=== PATIENT | female | born 1955 | race Caucasian/White ===

== ENCOUNTER 2019-03-24 12:31 | Inpatient (IN) | payer MEDICAID ==
[~2019-03-24] VITALS: Ht 170.2 cm; Wt 99.3 kg
[2019-03-24] MEDS ORDERED: [UNRECOGNIZED DRUG - REMARK] PO (12:48)
[2019-03-24] MEDS ORDERED: IV NORMAL SALINE 1000 ML BAG IV ONE (13:00)
[2019-03-24 13:02] LABS: BASOPHILS # (AUTO) 0.1 K/uL (0.0-8.0); BASOPHILS % (AUTO) 1.3 % (0.0-2.0); EOSINOPHILS # (AUTO) 0.5 K/uL (0.0-0.7); EOSINOPHILS % (AUTO) 6.6 % (0.0-7.0); HEMATOCRIT 38.5 % (31.2-41.9); HEMOGLOBIN 12.8 g/dL (10.9-14.3); LYMPHOCYTES # (AUTO) 1.7 K/uL (20.0-40.0); LYMPHOCYTES % (AUTO) 22.1 % (20.5-51.5); MEAN CORPUSCULAR HEMOGLOBIN 32.1 uug (24.7-32.8); MEAN CORPUSCULAR HGB CONC 33 g/dL (32.3-35.6); MONOCYTES # (AUTO) 0.7 K/uL (2.0-10.0); MONOCYTES % (AUTO) 9.6 % (0.0-11.0); NEUTROPHILS # (AUTO) 4.7 K/uL (1.8-8.9); NEUTROPHILS % (AUTO) 60.4 % (38.5-71.5); PLATELET COUNT (AUTO) 258 K/uL (179-408); RED BLOOD CELL COUNT(AUTO) 3.97 MIL/uL (3.63-4.92); WHITE BLOOD COUNT (AUTO) 7.8 K/uL (3.8-11.8)
[2019-03-24 13:08] LABS: CREATININE 0.8 mg/dL (0.6-1.3); POTASSIUM 3.3 mmol/L (3.5-5.1)
[2019-03-24 13:11] LABS: ACETAMINOPHEN < 2.0 ug/mL (10-30); ETHANOL < 3 MG/DL (0-0)
[2019-03-24 13:20] LABS: BILIRUBIN,DIRECT 0.2 mg/dL (0.0-0.2); BILIRUBIN,TOTAL 0.6 mg/dL (0.2-1.0); TOTAL PROTEIN, SERUM 6.6 g/dL (6.4-8.2)
[2019-03-24 14:17] LABS: *BILIRUBIN,URIN NEGATIVE (NEGATIVE); *BLOOD, URINE NEGATIVE (NEGATIVE); *COLOR,URINE YELLOW (YELLOW); *KETONES,URINE TRACE (NEGATIVE); LEUKOCYTE ESTERASE ,URINE 2+ (NEGATIVE); NITRITE, URINE NEGATIVE (NEGATIVE); PH,URINE 5.5 (5.0-8.0); UGLUCOSE NEGATIVE (NEGATIVE)
[2019-03-24 14:21] LABS: *CLARITY,URINE CLOUDY (CLEAR)
[2019-03-24 14:23] LABS: BACTERIA,URINE MODERATE /HPF (NONE SEEN); SQUAMOUS EPITHELIAL CELL,UR FEW /HPF (NONE SEEN); WBC,URINE 80-100 /HPF (0-3)
[2019-03-24 14:24] LABS: MUCUS,URINE MANY /LPF (0-FEW); URINE AMORPHOUS URATE FEW /HPF
[2019-03-24] MEDS ORDERED: CEFTRIAXONE 1 G in IV DEXTROSE 5% 50 ML IV ONE (14:45)
[2019-03-24] MEDS ORDERED: CEFTRIAXONE 1 G VIAL ONE (15:02)
[2019-03-24] MEDS ORDERED: MAGNESIUM HYDROXIDE 30 ML LIQUID UDC PO PRN (15:15)
[2019-03-24] MEDS ORDERED: Z GUARD REMEDY PASTE 57 GM TUBE TOP PRN (15:15)
[2019-03-24] MEDS ORDERED: ONDANSETRON 4 MG/2 ML VIAL IV PRN (15:15)
[2019-03-24] MEDS ORDERED: HYDROCODONE/APAP 5-325MG TABLET PO PRN (15:15)
[2019-03-24 16:00] LABS: *AMPHETAMINE, URINE NEGATIVE (NEGATIVE); *BARBITURATE, URINE NEGATIVE (NEGATIVE); *CANNABINOID, URINE NEGATIVE (NEGATIVE); *COCCAINE, URINE NEGATIVE (NEGATIVE); *OPIATE, URINE NEGATIVE (NEGATIVE); *PHENCYCLIDINE SCREEN,URINE NEGATIVE (NEGATIVE)
[2019-03-24 16:12] VITALS: BP 157/79
[2019-03-24] MEDS: IV NS 1000 ML 1,000 ML IV PRN (17:10)
[2019-03-24 20:04] VITALS: BP 113/74
[2019-03-25 00:08] VITALS: BP 148/74
[2019-03-25 04:00] VITALS: BP 148/72
[2019-03-25] MEDS: IV NS 1000 ML 1,000 ML IV PRN ×2 (06:24→20:28)
[2019-03-25 06:52] LABS: CREATININE 0.6 mg/dL (0.6-1.3); MAGNESIUM 1.3 mg/dL (1.8-2.4); PHOSPHOROUS 4.6 mg/dL (2.5-4.9); POTASSIUM 3.2 mmol/L (3.5-5.1)
[2019-03-25 06:59] LABS: BASOPHILS # (AUTO) 0.1 K/uL (0.0-8.0); EOSINOPHILS # (AUTO) 0.5 K/uL (0.0-0.7); EOSINOPHILS % (AUTO) 9.7 % (0.0-7.0); LYMPHOCYTES # (AUTO) 1.3 K/uL (20.0-40.0); LYMPHOCYTES % (AUTO) 23.6 % (20.5-51.5); MEAN CORPUSCULAR HEMOGLOBIN 32.2 uug (24.7-32.8); MEAN CORPUSCULAR HGB CONC 33 g/dL (32.3-35.6); MEAN CORPUSCULAR VOLUME 97.1 fL (75.5-95.3); MONOCYTES # (AUTO) 0.5 K/uL (2.0-10.0); MONOCYTES % (AUTO) 8.7 % (0.0-11.0); RED BLOOD CELL COUNT(AUTO) 3.48 MIL/uL (3.63-4.92)
[2019-03-25 07:02] LABS: THYROID STIMULATING HORMONE 4.39 mIU/mL (0.358-3.740); WHITE BLOOD COUNT (AUTO) 5.3 K/uL (3.8-11.8)
[2019-03-25 07:03] LABS: HEMATOCRIT 33.8 % (31.2-41.9); HEMOGLOBIN 11.2 g/dL (10.9-14.3); PLATELET COUNT (AUTO) 177 K/uL (179-408)
[2019-03-25 11:19] VITALS: BP 103/76
[2019-03-25] MEDS ORDERED: POTASSIUM CHLORIDE 20 MEQ TAB.PRT.SR PO ONE (14:30)
[2019-03-25 15:28] VITALS: BP 151/82
[2019-03-25] MEDS: MAGNESIUM OXIDE 400 MG TABLET PO SCH ×2 (15:31→17:30)
[2019-03-25 19:32] VITALS: BP 156/77
[2019-03-25] MEDS ORDERED: CEFTRIAXONE 1 G in IV DEXTROSE 5% 50 ML IV SCH (21:00)
[2019-03-25] MEDS ORDERED: HALOPERIDOL LACTATE 5 MG/1 ML VIAL IM PRN (21:30)
[2019-03-25] MEDS ORDERED: LORAZEPAM 2 MG/1 ML VIAL IV PRN (22:15)
[2019-03-26 04:25] VITALS: BP 141/76
[2019-03-26 05:46] LABS: BASOPHILS # (AUTO) 0.1 K/uL (0.0-8.0); EOSINOPHILS # (AUTO) 0.5 K/uL (0.0-0.7); EOSINOPHILS % (AUTO) 8.6 % (0.0-7.0); HEMATOCRIT 31.8 % (31.2-41.9); HEMOGLOBIN 10.6 g/dL (10.9-14.3); LYMPHOCYTES # (AUTO) 1.5 K/uL (20.0-40.0); LYMPHOCYTES % (AUTO) 24.3 % (20.5-51.5); MEAN CORPUSCULAR HEMOGLOBIN 32.2 uug (24.7-32.8); MEAN CORPUSCULAR HGB CONC 33 g/dL (32.3-35.6); MEAN CORPUSCULAR VOLUME 96.9 fL (75.5-95.3); MONOCYTES # (AUTO) 0.6 K/uL (2.0-10.0); MONOCYTES % (AUTO) 10.5 % (0.0-11.0); NEUTROPHILS # (AUTO) 3.3 K/uL (1.8-8.9); NEUTROPHILS % (AUTO) 55.6 % (38.5-71.5); PLATELET COUNT (AUTO) 172 K/uL (179-408); RED BLOOD CELL COUNT(AUTO) 3.28 MIL/uL (3.63-4.92)
[2019-03-26 05:53] LABS: CREATININE 0.7 mg/dL (0.6-1.3); MAGNESIUM 1.5 mg/dL (1.8-2.4); PHOSPHOROUS 3.8 mg/dL (2.5-4.9); POTASSIUM 3.6 mmol/L (3.5-5.1)
[2019-03-26 06:59] LABS: *AMPHETAMINE, URINE NEGATIVE (NEGATIVE); *BARBITURATE, URINE NEGATIVE (NEGATIVE); *CANNABINOID, URINE NEGATIVE (NEGATIVE); *COCCAINE, URINE NEGATIVE (NEGATIVE); *OPIATE, URINE NEGATIVE (NEGATIVE); *PHENCYCLIDINE SCREEN,URINE NEGATIVE (NEGATIVE)
[2019-03-26] MEDS: IV NS 1000 ML 1,000 ML IV PRN (10:40)
[2019-03-26] MEDS: NYSTATIN POWDER 15 GM BOTTLE TOP SCH ×2 (10:41→20:16)
[2019-03-26 12:04] VITALS: BP 149/79
[2019-03-26] MEDS: MAGNESIUM SULFATE/D5W 100 ML IV SCH ×2 (14:04→15:19)
[2019-03-26] MEDS: CYANOCOBALAMIN 1000 MCG/ML VIAL IM SCH (14:49)
[2019-03-26 16:04] VITALS: BP 152/81
[2019-03-26 19:38] VITALS: BP 147/91
[2019-03-26] MEDS: DONEPEZIL 5 MG TABLET PO SCH (20:16)
[2019-03-26 23:59] VITALS: BP 151/86
[2019-03-27] MEDS: IV NS 1000 ML 1,000 ML IV PRN ×2 (01:05→20:05)
[2019-03-27 05:05] VITALS: BP 151/78
[2019-03-27 06:13] LABS: BASOPHILS # (AUTO) 0.1 K/uL (0.0-8.0); BASOPHILS % (AUTO) 0.8 % (0.0-2.0); EOSINOPHILS # (AUTO) 0.5 K/uL (0.0-0.7); EOSINOPHILS % (AUTO) 7.6 % (0.0-7.0); HEMATOCRIT 31.4 % (31.2-41.9); HEMOGLOBIN 10.3 g/dL (10.9-14.3); LYMPHOCYTES # (AUTO) 1.5 K/uL (20.0-40.0); LYMPHOCYTES % (AUTO) 23.7 % (20.5-51.5); MEAN CORPUSCULAR HGB CONC 33 g/dL (32.3-35.6); MEAN CORPUSCULAR VOLUME 97.1 fL (75.5-95.3); MONOCYTES # (AUTO) 0.7 K/uL (2.0-10.0); MONOCYTES % (AUTO) 10.7 % (0.0-11.0); NEUTROPHILS # (AUTO) 3.6 K/uL (1.8-8.9); NEUTROPHILS % (AUTO) 57.2 % (38.5-71.5); PLATELET COUNT (AUTO) 171 K/uL (179-408); RED BLOOD CELL COUNT(AUTO) 3.23 MIL/uL (3.63-4.92); WHITE BLOOD COUNT (AUTO) 6.3 K/uL (3.8-11.8)
[2019-03-27 06:14] LABS: CREATININE 0.6 mg/dL (0.6-1.3); MAGNESIUM 1.8 mg/dL (1.8-2.4); PHOSPHOROUS 4.2 mg/dL (2.5-4.9); POTASSIUM 3.6 mmol/L (3.5-5.1)
[2019-03-27] MEDS: DONEPEZIL 5 MG TABLET PO SCH ×2 (08:11→20:05)
[2019-03-27] MEDS: HALOPERIDOL 5 MG TABLET PO SCH ×3 (08:11→16:12)
[2019-03-27] MEDS: CYANOCOBALAMIN 1000 MCG/ML VIAL IM SCH (08:11)
[2019-03-27] MEDS: BENZTROPINE MESYLATE 1 MG TABLET PO SCH ×3 (08:11→16:12)
[2019-03-27] MEDS: NYSTATIN POWDER 15 GM BOTTLE TOP SCH ×2 (08:12→20:27)
[2019-03-27 08:18] VITALS: BP 147/78
[2019-03-27 12:00] VITALS: BP 149/76
[2019-03-27 16:00] VITALS: BP 129/77
[2019-03-27 20:00] VITALS: BP 123/67
[2019-03-27] MEDS: ACETAMINOPHEN 325 MG TABLET PO PRN (20:38)
[2019-03-27] MEDS: ZOLPIDEM 5 MG TABLET PO PRN (23:48)
[2019-03-28 00:12] VITALS: BP 96/49
[2019-03-28 04:00] VITALS: BP 154/85
[2019-03-28] MEDS: HALOPERIDOL 5 MG TABLET PO SCH ×3 (08:00→16:05)
[2019-03-28] MEDS: BENZTROPINE MESYLATE 1 MG TABLET PO SCH ×3 (08:00→16:05)
[2019-03-28] MEDS: NYSTATIN POWDER 15 GM BOTTLE TOP SCH ×2 (08:00→20:29)
[2019-03-28] MEDS: CYANOCOBALAMIN 1000 MCG/ML VIAL IM SCH (08:00)
[2019-03-28] MEDS: DONEPEZIL 5 MG TABLET PO SCH ×2 (08:00→20:22)
[2019-03-28] MEDS: IV NS 1000 ML 1,000 ML IV PRN ×2 (09:07→22:40)
[2019-03-28 11:18] VITALS: BP 123/60
[2019-03-28 15:15] VITALS: BP 124/62
[2019-03-28 20:00] VITALS: BP 123/77
[2019-03-28] MEDS: ACETAMINOPHEN 325 MG TABLET PO PRN (20:22)
[2019-03-29 06:14] VITALS: BP 161/84
[2019-03-29 06:41] VITALS: BP 131/79
[2019-03-29 06:54] LABS: CREATININE 0.6 mg/dL (0.6-1.3); MAGNESIUM 1.5 mg/dL (1.8-2.4); PHOSPHOROUS 4.2 mg/dL (2.5-4.9); POTASSIUM 3.3 mmol/L (3.5-5.1)
[2019-03-29 06:55] LABS: BASOPHILS % (AUTO) 0.8 % (0.0-2.0); EOSINOPHILS # (AUTO) 0.4 K/uL (0.0-0.7); EOSINOPHILS % (AUTO) 6.3 % (0.0-7.0); HEMATOCRIT 32.3 % (31.2-41.9); HEMOGLOBIN 10.7 g/dL (10.9-14.3); LYMPHOCYTES # (AUTO) 1.3 K/uL (20.0-40.0); LYMPHOCYTES % (AUTO) 20.3 % (20.5-51.5); MEAN CORPUSCULAR HEMOGLOBIN 32.1 uug (24.7-32.8); MEAN CORPUSCULAR HGB CONC 33 g/dL (32.3-35.6); MONOCYTES # (AUTO) 0.7 K/uL (2.0-10.0); MONOCYTES % (AUTO) 11.4 % (0.0-11.0); NEUTROPHILS # (AUTO) 3.8 K/uL (1.8-8.9); NEUTROPHILS % (AUTO) 61.2 % (38.5-71.5); PLATELET COUNT (AUTO) 187 K/uL (179-408); RED BLOOD CELL COUNT(AUTO) 3.33 MIL/uL (3.63-4.92); WHITE BLOOD COUNT (AUTO) 6.2 K/uL (3.8-11.8)
[2019-03-29] MEDS: HALOPERIDOL 5 MG TABLET PO SCH ×3 (08:03→16:05)
[2019-03-29] MEDS: CYANOCOBALAMIN 1000 MCG/ML VIAL IM SCH (08:03)
[2019-03-29] MEDS: BENZTROPINE MESYLATE 1 MG TABLET PO SCH ×3 (08:03→16:05)
[2019-03-29] MEDS: DONEPEZIL 5 MG TABLET PO SCH ×2 (08:03→20:57)
[2019-03-29] MEDS: NYSTATIN POWDER 15 GM BOTTLE TOP SCH ×2 (08:04→20:57)
[2019-03-29] MEDS ORDERED: MAGNESIUM OXIDE 400 MG TABLET PO ONE (10:45)
[2019-03-29] MEDS ORDERED: POTASSIUM CHLORIDE 10 MEQ TAB.PRT.SR PO ONE (10:45)
[2019-03-29 11:36] VITALS: BP 143/71
[2019-03-29 15:19] VITALS: BP 132/65
[2019-03-29 20:20] VITALS: BP 170/78
[2019-03-29] MEDS: ZOLPIDEM 5 MG TABLET PO PRN (23:19)
[2019-03-30 06:00] VITALS: BP 140/62
[2019-03-30 06:29] LABS: BASOPHILS # (AUTO) 0.1 K/uL (0.0-8.0); BASOPHILS % (AUTO) 1.1 % (0.0-2.0); EOSINOPHILS # (AUTO) 0.4 K/uL (0.0-0.7); EOSINOPHILS % (AUTO) 6.5 % (0.0-7.0); HEMOGLOBIN 10.8 g/dL (10.9-14.3); LYMPHOCYTES # (AUTO) 1.2 K/uL (20.0-40.0); LYMPHOCYTES % (AUTO) 20.5 % (20.5-51.5); MEAN CORPUSCULAR HEMOGLOBIN 31.8 uug (24.7-32.8); MEAN CORPUSCULAR HGB CONC 33 g/dL (32.3-35.6); MEAN CORPUSCULAR VOLUME 96.8 fL (75.5-95.3); MONOCYTES # (AUTO) 0.6 K/uL (2.0-10.0); MONOCYTES % (AUTO) 10.2 % (0.0-11.0); NEUTROPHILS # (AUTO) 3.5 K/uL (1.8-8.9); NEUTROPHILS % (AUTO) 61.7 % (38.5-71.5); PLATELET COUNT (AUTO) 190 K/uL (179-408); RED BLOOD CELL COUNT(AUTO) 3.41 MIL/uL (3.63-4.92); WHITE BLOOD COUNT (AUTO) 5.7 K/uL (3.8-11.8)
[2019-03-30 06:47] LABS: CREATININE 0.6 mg/dL (0.6-1.3); MAGNESIUM 1.5 mg/dL (1.8-2.4); PHOSPHOROUS 4.5 mg/dL (2.5-4.9); POTASSIUM 3.4 mmol/L (3.5-5.1)
[2019-03-30] MEDS: BENZTROPINE MESYLATE 1 MG TABLET PO SCH ×3 (08:14→16:01)
[2019-03-30] MEDS: HALOPERIDOL 5 MG TABLET PO SCH ×3 (08:14→16:01)
[2019-03-30] MEDS: DONEPEZIL 5 MG TABLET PO SCH (08:15)
[2019-03-30] MEDS: CYANOCOBALAMIN 1000 MCG/ML VIAL IM SCH (08:15)
[2019-03-30] MEDS: NYSTATIN POWDER 15 GM BOTTLE TOP SCH (08:16)
[2019-03-30] MEDS ORDERED: POTASSIUM CHLORIDE 20 MEQ TAB.PRT.SR PO ONE (09:15)
[2019-03-30] MEDS ORDERED: MAGNESIUM OXIDE 400 MG TABLET PO ONE (09:15)
[2019-03-30] MEDS ORDERED: POTASSIUM CHLORIDE 20 MEQ POWDER PACKET PO ONE (09:45)
[2019-03-30 11:34] VITALS: BP 143/69
[2019-03-30 15:00] VITALS: BP 110/68
[2019-03-30] MEDS ORDERED: AMPI500C11 PO (18:41)
[2019-03-30] MEDS ORDERED: DONE5TAB7 PO (18:41)
[2019-03-30] MEDS ORDERED: HALO5TAB12 PO (18:41)
[2019-03-30] MEDS ORDERED: BENZ1TAB7 PO (18:41)
== END 2019-03-30 20:33 | disposition home or self-care (01) | DRG 463 ==
LOC: ER 12:31 → TELE3 15:07 → MEDSURG3 16:01 → TELE3 19:03 → MEDSURG3 03-28 11:12
PROVIDERS: ADMIT Student in an Organized Health Care Education/Training Program; ATTEND Student in an Organized Health Care Education/Training Program
DX: N39.0 Urinary tract infection, site not specified (principal); G93.41 Metabolic encephalopathy; E44.0 Moderate protein-calorie malnutrition; E86.0 Dehydration; Z90.710 Acquired absence of both cervix and uterus; E87.6 Hypokalemia; Z68.34 Body mass index [BMI] 34.0-34.9, adult; F10.27 Alcohol dependence with alcohol-induced persisting dementia; Y90.0 Blood alcohol level of less than 20 mg/100 ml; R26.2 Difficulty in walking, not elsewhere classified; Z85.41 Personal history of malignant neoplasm of cervix uteri; F41.9 Anxiety disorder, unspecified
CPT/HCPCS: 36415; 70030-TC; 70450; 71045; 80307; 83735; 83921; 84100; 84443; 85025; 85730; 87077; 87086; 92526; 92610; 93005; 97110; 97116; 97530; A4663; G0378; G0480; G0480-TC; J0290; J0696; J1630; J2060; J3420; J3475; J3490; J7030; J7060

== ENCOUNTER 2019-05-18 12:09 | Inpatient (IN) | payer MEDICAID ==
[~2019-05-18] VITALS: Ht 172.7 cm; Wt 92.1 kg
[~2019-05-18 12:09] MED LIST: AMPI500C11 PO; BENZ1TAB7 PO; DONE5TAB7 PO; HALO5TAB12 PO
[2019-05-18 13:01] LABS: BASOPHILS % (AUTO) 0.4 % (0.0-2.0); EOSINOPHILS # (AUTO) 0.1 K/uL (0.0-0.7); EOSINOPHILS % (AUTO) 1.1 % (0.0-7.0); HEMATOCRIT 33.9 % (31.2-41.9); HEMOGLOBIN 11.3 g/dL (10.9-14.3); LYMPHOCYTES # (AUTO) 1.3 K/uL (20.0-40.0); LYMPHOCYTES % (AUTO) 12.7 % (20.5-51.5); MEAN CORPUSCULAR HGB CONC 33 g/dL (32.3-35.6); MEAN CORPUSCULAR VOLUME 93.1 fL (75.5-95.3); MONOCYTES # (AUTO) 0.8 K/uL (2.0-10.0); MONOCYTES % (AUTO) 7.8 % (0.0-11.0); NEUTROPHILS # (AUTO) 7.7 K/uL (1.8-8.9); PLATELET COUNT (AUTO) 226 K/uL (179-408); RED BLOOD CELL COUNT(AUTO) 3.64 MIL/uL (3.63-4.92); WHITE BLOOD COUNT (AUTO) 9.9 K/uL (3.8-11.8)
[2019-05-18 13:10] LABS: CREATININE 1.2 mg/dL (0.6-1.3); POTASSIUM 3.7 mmol/L (3.5-5.1)
[2019-05-18 13:16] LABS: BILIRUBIN,DIRECT 0.2 mg/dL (0.0-0.2); BILIRUBIN,TOTAL 0.6 mg/dL (0.2-1.0); TOTAL PROTEIN, SERUM 6.1 g/dL (6.4-8.2)
[2019-05-18 13:23] LABS: THYROID STIMULATING HORMONE 1.53 mIU/mL (0.358-3.740)
[2019-05-18 13:43] LABS: ETHANOL < 3 MG/DL (0-0)
[2019-05-18 15:07] LABS: *BILIRUBIN,URIN NEGATIVE (NEGATIVE); *COLOR,URINE AMBER (YELLOW); *KETONES,URINE NEGATIVE (NEGATIVE); *UROBILINOGEN,URINE 0.2 E.U./dl (NORMAL); LEUKOCYTE ESTERASE ,URINE 3+ (NEGATIVE); NITRITE, URINE POSITIVE (NEGATIVE); PH,URINE 5.5 (5.0-8.0); UGLUCOSE NEGATIVE (NEGATIVE)
[2019-05-18 15:15] LABS: *BLOOD, URINE TRACE (NEGATIVE); *CLARITY,URINE TURBID (CLEAR)
[2019-05-18 15:16] LABS: BACTERIA,URINE MANY /HPF (NONE SEEN); WBC,URINE TNTC /HPF (0-3)
[2019-05-18 15:17] LABS: MUCUS,URINE MODERATE /LPF (0-FEW); SQUAMOUS EPITHELIAL CELL,UR MODERATE /HPF (NONE SEEN)
[2019-05-18] MEDS ORDERED: Z GUARD REMEDY PASTE 57 GM TUBE TOP PRN (15:45)
[2019-05-18] MEDS ORDERED: MAGNESIUM HYDROXIDE 30 ML LIQUID UDC PO PRN (15:45)
[2019-05-18] MEDS ORDERED: HYDROCODONE/APAP 5-325MG TABLET PO PRN (15:45)
[2019-05-18] MEDS ORDERED: ACETAMINOPHEN 325 MG TABLET PO PRN (15:45)
[2019-05-18] MEDS ORDERED: ONDANSETRON 4 MG/2 ML VIAL IV PRN (15:45)
[2019-05-18 17:00] VITALS: BP 148/84
[2019-05-18 19:36] LABS: *AMPHETAMINE, URINE NEGATIVE (NEGATIVE); *BARBITURATE, URINE NEGATIVE (NEGATIVE); *CANNABINOID, URINE NEGATIVE (NEGATIVE); *COCCAINE, URINE NEGATIVE (NEGATIVE); *OPIATE, URINE NEGATIVE (NEGATIVE); *PHENCYCLIDINE SCREEN,URINE NEGATIVE (NEGATIVE)
[2019-05-18] MEDS: IV NS 1000 ML 1,000 ML IV ONE (19:44)
[2019-05-18] MEDS: CEFTRIAXONE 1 G in IV DEXTROSE 5% 50 ML IV SCH (19:44)
[2019-05-18] MEDS: IV NS 1000 ML 1,000 ML IV PRN (19:52)
[2019-05-18] MEDS: ASPIRIN 81 MG TAB.CHEW PO SCH (19:54)
[2019-05-18] MEDS: HALOPERIDOL 5 MG TABLET PO SCH (19:54)
[2019-05-18] MEDS: BENZTROPINE MESYLATE 1 MG TABLET PO SCH (19:55)
[2019-05-18] MEDS: DONEPEZIL 5 MG TABLET PO SCH (20:21)
[2019-05-18] MEDS: ENOXAPARIN SODIUM 40 MG/0.4 ML DISP.SYRIN SQ SCH (20:22)
[2019-05-18] MEDS: THIAMINE HCL INJ 100 MG in IV DEXTROSE 5% 50 ML IV SCH (20:44)
[2019-05-18 23:17] VITALS: BP 102/66
[2019-05-19 00:23] VITALS: BP 118/69
[2019-05-19 05:29] VITALS: BP 134/71
[2019-05-19 06:32] LABS: BASOPHILS % (AUTO) 0.8 % (0.0-2.0); EOSINOPHILS # (AUTO) 0.2 K/uL (0.0-0.7); EOSINOPHILS % (AUTO) 3.9 % (0.0-7.0); HEMATOCRIT 31.1 % (31.2-41.9); HEMOGLOBIN 10.4 g/dL (10.9-14.3); LYMPHOCYTES # (AUTO) 1.6 K/uL (20.0-40.0); LYMPHOCYTES % (AUTO) 25.7 % (20.5-51.5); MEAN CORPUSCULAR HEMOGLOBIN 30.7 uug (24.7-32.8); MEAN CORPUSCULAR HGB CONC 34 g/dL (32.3-35.6); MEAN CORPUSCULAR VOLUME 91.7 fL (75.5-95.3); MONOCYTES # (AUTO) 0.5 K/uL (2.0-10.0); MONOCYTES % (AUTO) 8.5 % (0.0-11.0); NEUTROPHILS # (AUTO) 3.8 K/uL (1.8-8.9); NEUTROPHILS % (AUTO) 61.1 % (38.5-71.5); PLATELET COUNT (AUTO) 203 K/uL (179-408); RED BLOOD CELL COUNT(AUTO) 3.39 MIL/uL (3.63-4.92); WHITE BLOOD COUNT (AUTO) 6.2 K/uL (3.8-11.8)
[2019-05-19 06:41] LABS: CREATININE 0.8 mg/dL (0.6-1.3); MAGNESIUM 1.7 mg/dL (1.8-2.4); PHOSPHOROUS 3.8 mg/dL (2.5-4.9); POTASSIUM 3.5 mmol/L (3.5-5.1)
[2019-05-19] MEDS: ASPIRIN 81 MG TAB.CHEW PO SCH (08:06)
[2019-05-19] MEDS: DONEPEZIL 5 MG TABLET PO SCH ×2 (08:06→20:23)
[2019-05-19] MEDS: HALOPERIDOL 5 MG TABLET PO SCH ×3 (08:07→17:12)
[2019-05-19] MEDS: BENZTROPINE MESYLATE 1 MG TABLET PO SCH ×3 (08:07→17:12)
[2019-05-19] MEDS: CYANOCOBALAMIN 1000 MCG/ML VIAL IM SCH (09:00)
[2019-05-19] MEDS: IV NS 1000 ML 1,000 ML IV PRN (09:56)
[2019-05-19 12:30] VITALS: BP 119/65
[2019-05-19 15:14] VITALS: BP 125/69
[2019-05-19] MEDS: MAGNESIUM SULFATE/D5W 100 ML IV SCH ×2 (15:32→16:40)
[2019-05-19] MEDS ORDERED: CYANOCOBALAMIN 1000 MCG/ML VIAL IM ONE (18:00)
[2019-05-19] MEDS: CEFTRIAXONE 1 G in IV DEXTROSE 5% 50 ML IV SCH (18:02)
[2019-05-19] MEDS: THIAMINE HCL INJ 100 MG in IV DEXTROSE 5% 50 ML IV SCH (18:33)
[2019-05-19 20:00] VITALS: BP 135/70
[2019-05-19] MEDS: ENOXAPARIN SODIUM 40 MG/0.4 ML DISP.SYRIN SQ SCH (20:24)
[2019-05-20] VITALS: BP 152/76
[2019-05-20] MEDS: IV NS 1000 ML 1,000 ML IV PRN (00:34)
[2019-05-20] MEDS: IV NS 1000 ML 1,000 ML IV ONE (00:46)
[2019-05-20 04:00] VITALS: BP 155/80
[2019-05-20 06:34] LABS: BASOPHILS % (AUTO) 0.6 % (0.0-2.0); EOSINOPHILS # (AUTO) 0.2 K/uL (0.0-0.7); EOSINOPHILS % (AUTO) 3.6 % (0.0-7.0); LYMPHOCYTES # (AUTO) 1.4 K/uL (20.0-40.0); LYMPHOCYTES % (AUTO) 22.3 % (20.5-51.5); MEAN CORPUSCULAR HEMOGLOBIN 31.4 uug (24.7-32.8); MEAN CORPUSCULAR HGB CONC 33 g/dL (32.3-35.6); MEAN CORPUSCULAR VOLUME 95.3 fL (75.5-95.3); MONOCYTES # (AUTO) 0.5 K/uL (2.0-10.0); MONOCYTES % (AUTO) 8.9 % (0.0-11.0); NEUTROPHILS # (AUTO) 3.9 K/uL (1.8-8.9); NEUTROPHILS % (AUTO) 64.6 % (38.5-71.5); PLATELET COUNT (AUTO) 190 K/uL (179-408); RED BLOOD CELL COUNT(AUTO) 3.75 MIL/uL (3.63-4.92); WHITE BLOOD COUNT (AUTO) 6.1 K/uL (3.8-11.8)
[2019-05-20 06:45] LABS: POTASSIUM 3.6 mmol/L (3.5-5.1)
[2019-05-20 06:46] LABS: CREATININE 0.9 mg/dL (0.6-1.3)
[2019-05-20 06:50] LABS: HEMATOCRIT 35.7 % (31.2-41.9); HEMOGLOBIN 11.8 g/dL (10.9-14.3)
[2019-05-20] MEDS: HALOPERIDOL 5 MG TABLET PO SCH ×3 (08:06→17:23)
[2019-05-20] MEDS: BENZTROPINE MESYLATE 1 MG TABLET PO SCH ×3 (08:06→17:23)
[2019-05-20] MEDS: ASPIRIN 81 MG TAB.CHEW PO SCH (08:06)
[2019-05-20] MEDS: DONEPEZIL 5 MG TABLET PO SCH ×2 (08:06→20:16)
[2019-05-20] MEDS: CYANOCOBALAMIN 1000 MCG/ML VIAL IM SCH (08:07)
[2019-05-20 08:52] VITALS: BP 159/65
[2019-05-20] MEDS: CEphaleXIN 500 MG CAPSULE PO SCH ×2 (13:11→20:16)
[2019-05-20] MEDS: THIAMINE HCL INJ 100 MG in IV DEXTROSE 5% 50 ML IV SCH (17:45)
[2019-05-20 19:56] VITALS: BP 95/68
[2019-05-20] MEDS: ENOXAPARIN SODIUM 40 MG/0.4 ML DISP.SYRIN SQ SCH (20:15)
[2019-05-21 05:00] VITALS: BP 136/68
[2019-05-21 06:57] LABS: BASOPHILS % (AUTO) 0.8 % (0.0-2.0); EOSINOPHILS # (AUTO) 0.3 K/uL (0.0-0.7); EOSINOPHILS % (AUTO) 4.3 % (0.0-7.0); HEMATOCRIT 32.3 % (31.2-41.9); LYMPHOCYTES # (AUTO) 1.5 K/uL (20.0-40.0); MEAN CORPUSCULAR HEMOGLOBIN 32.6 uug (24.7-32.8); MEAN CORPUSCULAR HGB CONC 34 g/dL (32.3-35.6); MEAN CORPUSCULAR VOLUME 95.6 fL (75.5-95.3); MONOCYTES # (AUTO) 0.6 K/uL (2.0-10.0); MONOCYTES % (AUTO) 9.5 % (0.0-11.0); NEUTROPHILS # (AUTO) 3.6 K/uL (1.8-8.9); NEUTROPHILS % (AUTO) 60.4 % (38.5-71.5); PLATELET COUNT (AUTO) 192 K/uL (179-408); RED BLOOD CELL COUNT(AUTO) 3.38 MIL/uL (3.63-4.92)
[2019-05-21 07:15] LABS: CREATININE 0.8 mg/dL (0.6-1.3); POTASSIUM 3.9 mmol/L (3.5-5.1)
[2019-05-21] MEDS: BENZTROPINE MESYLATE 1 MG TABLET PO SCH ×3 (09:12→17:17)
[2019-05-21] MEDS: CYANOCOBALAMIN 1000 MCG/ML VIAL IM SCH (09:12)
[2019-05-21] MEDS: CEphaleXIN 500 MG CAPSULE PO SCH ×2 (09:12→20:48)
[2019-05-21] MEDS: DONEPEZIL 5 MG TABLET PO SCH ×2 (09:12→20:48)
[2019-05-21] MEDS: ASPIRIN 81 MG TAB.CHEW PO SCH (09:12)
[2019-05-21] MEDS: HALOPERIDOL 5 MG TABLET PO SCH ×3 (09:12→17:17)
[2019-05-21 11:30] VITALS: BP 155/90
[2019-05-21 16:27] VITALS: BP 155/90
[2019-05-21] MEDS ORDERED: THIAMINE HCL 100 MG TABLET PO SCH (18:00)
[2019-05-21 20:02] VITALS: BP 133/71
[2019-05-21] MEDS: ENOXAPARIN SODIUM 40 MG/0.4 ML DISP.SYRIN SQ SCH (20:50)
[2019-05-22] VITALS: BP 157/94
[2019-05-22 04:42] VITALS: BP 141/67
[2019-05-22] MEDS: HALOPERIDOL 5 MG TABLET PO SCH (08:49)
[2019-05-22] MEDS: BENZTROPINE MESYLATE 1 MG TABLET PO SCH (08:50)
[2019-05-22] MEDS: DONEPEZIL 5 MG TABLET PO SCH (08:50)
[2019-05-22] MEDS: CYANOCOBALAMIN 1000 MCG/ML VIAL IM SCH (08:50)
[2019-05-22] MEDS: ASPIRIN 81 MG TAB.CHEW PO SCH (08:50)
[2019-05-22] MEDS: CEphaleXIN 500 MG CAPSULE PO SCH (08:50)
[2019-05-22] MEDS ORDERED: THIA100T13 PO (10:45)
[2019-05-22] MEDS ORDERED: ASPI81TA31 PO (10:45)
[2019-05-22] MEDS ORDERED: CEPH500C2 PO (10:45)
[2019-05-22 11:42] VITALS: BP 143/74
== END 2019-05-22 13:30 | disposition home health service (06) | DRG 463 ==
LOC: ER 12:09 → TELE3 17:01 → MEDSURG3 05-20 11:40
PROVIDERS: ADMIT Nurse Practitioner Acute Care; ATTEND Nurse Practitioner Acute Care
DX: N39.0 Urinary tract infection, site not specified (principal); G93.41 Metabolic encephalopathy; L89.313 Pressure ulcer of right buttock, stage 3; E87.2 Acidosis; G31.2 Degeneration of nervous system due to alcohol; F10.27 Alcohol dependence with alcohol-induced persisting dementia; E86.0 Dehydration; Z90.710 Acquired absence of both cervix and uterus; Z85.41 Personal history of malignant neoplasm of cervix uteri; Y90.0 Blood alcohol level of less than 20 mg/100 ml; E66.9 Obesity, unspecified; Z68.30 Body mass index [BMI] 30.0-30.9, adult; B96.20 Unspecified Escherichia coli [E. coli] as the cause of diseases classified elsewhere; R29.6 Repeated falls; F10.20 Alcohol dependence, uncomplicated; F02.80 Dementia in other diseases classified elsewhere, unspecified severity, without behavioral disturbance, psychotic disturbance, mood disturbance, and anxiety; H55.00 Unspecified nystagmus; R26.0 Ataxic gait
CPT/HCPCS: 36415; 70030-TC; 70450; 80307; 83605; 83690; 83735; 84100; 84443; 85025; 87040; 87077; 87086; 93005; 93880; A4663; G0378; G0480; J0696; J1650; J3411; J3420; J3475; J7030; J7060

== ENCOUNTER 2019-07-01 13:13 | Emergency (ER) | payer SELFPAY ==
[~2019-07-01] VITALS: Ht 172.7 cm; Wt 93.0 kg
[~2019-07-01 13:13] MED LIST changes: -AMPI500C11 PO; +ASPI81TA31 PO; +CEPH500C2 PO; +THIA100T13 PO
--- NOTE | 2019-07-01 13:37 | NUR ---
Patient was seen by . DC, RX AND FOLLOW UP INSTRUCTIONS GIVEN AND EXPLAINED TO PATIENT WHO STATES SHE UNDERSTANDS ALL INSTRUCTIONS.
== END 2019-07-01 13:40 | disposition home or self-care (01) ==
LOC: ER 13:13
DX: M79.671 Pain in right foot (principal); B95.8 Unspecified staphylococcus as the cause of diseases classified elsewhere; Z90.710 Acquired absence of both cervix and uterus; Z79.82 Long term (current) use of aspirin; Z79.899 Other long term (current) drug therapy
CPT/HCPCS: A4663

== ENCOUNTER 2019-07-08 09:14 | Emergency (ER) | payer SELFPAY ==
[~2019-07-08] VITALS: Ht 172.7 cm; Wt 83.9 kg
[2019-07-08] MEDS ORDERED: SULF1TAB48 PO (09:30)
[2019-07-08] MEDS ORDERED: NAPR220C15 PO (09:37)
[2019-07-08 09:54] LABS: BASOPHILS # (AUTO) 0.1 K/uL (0.0-8.0); BASOPHILS % (AUTO) 0.9 % (0.0-2.0); EOSINOPHILS # (AUTO) 0.1 K/uL (0.0-0.7); EOSINOPHILS % (AUTO) 1.6 % (0.0-7.0); HEMATOCRIT 36.5 % (31.2-41.9); HEMOGLOBIN 12.1 g/dL (10.9-14.3); LYMPHOCYTES # (AUTO) 1.3 K/uL (20.0-40.0); LYMPHOCYTES % (AUTO) 14.1 % (20.5-51.5); MEAN CORPUSCULAR HEMOGLOBIN 29.6 uug (24.7-32.8); MEAN CORPUSCULAR HGB CONC 33 g/dL (32.3-35.6); MEAN CORPUSCULAR VOLUME 89.5 fL (75.5-95.3); MONOCYTES # (AUTO) 0.6 K/uL (2.0-10.0); MONOCYTES % (AUTO) 6.4 % (0.0-11.0); NEUTROPHILS # (AUTO) 7.2 K/uL (1.8-8.9); PLATELET COUNT (AUTO) 409 K/uL (179-408); RED BLOOD CELL COUNT(AUTO) 4.08 MIL/uL (3.63-4.92); WHITE BLOOD COUNT (AUTO) 9.4 K/uL (3.8-11.8)
[2019-07-08 10:13] LABS: ETHANOL < 3 MG/DL (0-0)
[2019-07-08 10:15] LABS: *BLOOD, URINE NEGATIVE (NEGATIVE); *CLARITY,URINE CLOUDY (CLEAR); *KETONES,URINE TRACE (NEGATIVE); *UROBILINOGEN,URINE >=8.0 E.U./dl (NORMAL); LEUKOCYTE ESTERASE ,URINE NEGATIVE (NEGATIVE); NITRITE, URINE NEGATIVE (NEGATIVE); UGLUCOSE NEGATIVE (NEGATIVE)
[2019-07-08 10:15] LABS: BILIRUBIN,DIRECT 0.1 mg/dL (0.0-0.2); BILIRUBIN,TOTAL 0.4 mg/dL (0.2-1.0); TOTAL PROTEIN, SERUM 7.7 g/dL (6.4-8.2)
--- NOTE | 2019-07-08 10:16 | NUR ---
Pt is in room #2b. dr Shah evaluated the pt.
[2019-07-08 10:20] LABS: *BILIRUBIN,URIN 1+ (NEGATIVE); *COLOR,URINE DARK YELLOW (YELLOW)
[2019-07-08 10:21] LABS: *AMPHETAMINE, URINE NEGATIVE (NEGATIVE); *BARBITURATE, URINE NEGATIVE (NEGATIVE); *CANNABINOID, URINE NEGATIVE (NEGATIVE); *COCCAINE, URINE NEGATIVE (NEGATIVE); *OPIATE, URINE NEGATIVE (NEGATIVE); *PHENCYCLIDINE SCREEN,URINE NEGATIVE (NEGATIVE); RBC,URINE 0-3 /HPF (0-3)
[2019-07-08 10:23] LABS: BACTERIA,URINE FEW /HPF (NONE SEEN)
[2019-07-08 10:24] LABS: MUCUS,URINE MODERATE /LPF (0-FEW); SQUAMOUS EPITHELIAL CELL,UR MODERATE /HPF (NONE SEEN)
--- NOTE | 2019-07-08 12:14 | NUR ---
PT WAS D/C'd TO HOME. D/C INSTRUCTIONS GIVEN TO THE PT.
[2019-07-08 12:17] VITALS: BP 141/69
== END 2019-07-08 12:18 | disposition home or self-care (01) ==
LOC: ER 09:14
DX: L98.419 Non-pressure chronic ulcer of buttock with unspecified severity (principal); L97.419 Non-pressure chronic ulcer of right heel and midfoot with unspecified severity; R10.30 Lower abdominal pain, unspecified; F03.90 Unspecified dementia, unspecified severity, without behavioral disturbance, psychotic disturbance, mood disturbance, and anxiety; Z90.710 Acquired absence of both cervix and uterus; Z79.82 Long term (current) use of aspirin; Z79.899 Other long term (current) drug therapy
CPT/HCPCS: 36415; 70450; 71045; 80048; 80076; 80307; 81000; 81001; 82140; 83690; 84484; 85025; 87086; 93005; 99284; G0480; 70030-TC; A4663; J7030